=== PATIENT | female | born 1985 | race Caucasian/White ===

== ENCOUNTER 2016-09-04 08:42 | Emergency (ER) | payer MEDICAID ==
[~2016-09-04] VITALS: Ht 165.1 cm; Wt 88.9 kg
[2016-09-04 09:32] LABS: microscopic required? NO
[2016-09-04 09:39] LABS: BASOPHIL % 0.7 % (0-2); PLATELET COUNT 213 x10^3mcL (130-400); RED CELL DISTRIBUTION WIDTH 13.6 % (11.5-14.5)
[2016-09-04 09:42] LABS: UA SPECIFIC GRAVITY 1.015 (1.005-1.035); urine erythrocyte NEGATIVE (NEGATIVE)
[2016-09-04 09:59] LABS: CALCIUM 9.4 mg/dL (8.5-10.1); CARBON DIOXIDE 29.3 mmol/L (21-32); CHLORIDE SERUM 106 mmol/L (98-107); CREATININE SERUM 0.8 mg/dL (0.6-1.0); GFR1 > 60 mL/min; GLUCOSE SERUM 104 mg/dL (74-106); POTASSIUM SERUM 4.4 mmol/L (3.5-5.1); SODIUM SERUM 141 mmol/L (136-145)
[2016-09-04 10:03] LABS: ALKALINE PHOSPHATASE 105 U/L (46-116); ALT/SGPT 34 U/L (14-59); AMYLASE 61 U/L (25-115); AST/SGOT 27 U/L (15-37); BILIRUBIN TOTAL 0.3 mg/dL (0.20-1.00); LIPASE 131 IU/L (73-393); TOTAL PROTEIN, SERUM 6.6 g/dL (6.4-8.2)
[2016-09-04 10:09] LABS: ALBUMIN 3.3 g/dL (3.4-5.0)
[2016-09-04 11:50] VITALS: BP 105/70
[2016-09-05] MEDS ORDERED: NAPROSYN500 MG PO (11:29)
[2016-09-05] MEDS ORDERED: NAPROXEN250 MG PO (11:29)
== END 2016-09-04 11:50 | disposition home or self-care (01) ==
LOC: ED 08:42
PROVIDERS: Emergency Medicine
DX: R10.31 Right lower quadrant pain (principal); R11.0 Nausea
CPT/HCPCS: J1885; J2405; Q9967

== ENCOUNTER 2016-09-05 08:30 | Inpatient (IN) | payer MEDICAID ==
[~2016-09-05] VITALS: Ht 162.6 cm; Wt 91.7 kg
--- NOTE | 2016-09-05 08:46 | NUR ---
PT IN RESTROOM PROVIDING URINE SAMPLE.
--- NOTE | 2016-09-05 08:54 | NUR ---
PT CAME INTO ED WITH C/C RLQ/RUQ PAIN. PT CAME INTO ED YESTERDAY WITH POSSIBLE APPENDICITIS. PT D/C STABLE. PT CAME BACK DUE TO INCREASING PAIN AND VOMITTING THIS MORNING. PT ABD IS SOFT, ROUND, SYMMETRICAL AND TENDER TO PALPATION. PT HAS ACTIVE BOWEL SOUNDS X 4 QUADRANTS. PT LAYING IN BED IN POSITION OF COMFORT. WILL CONTINUE TO MONITOR PT AT THIS TIME.
--- NOTE | 2016-09-05 09:05 | NUR ---
AT BEDSIDE FOR MSE.
--- NOTE | 2016-09-05 09:15 | NUR ---
LAB AT BEDSIDE.
--- NOTE | 2016-09-05 09:20 | NUR ---
IM TORADOL GIVEN AT THIS TIME IN R [place]. WILL CONTINUE TO MONITOR PT AT THIS TIME.
[2016-09-05 09:22] LABS: BASOPHIL % 0.7 % (0-2); PLATELET COUNT 200 x10^3mcL (130-400); RED CELL DISTRIBUTION WIDTH 13.1 % (11.5-14.5)
--- NOTE | 2016-09-05 09:22 | NUR ---
PT TAKEN TO RADIOLOGY AT THIS TIME.
--- NOTE | 2016-09-05 09:32 | NUR ---
PT BACK FROM RADIOLOGY AT THIS TIME.
--- NOTE | 2016-09-05 09:37 | NUR ---
PT TAKEN TO ULTRASOUND AT THIS TIME.
[2016-09-05 09:47] LABS: CALCIUM 9.5 mg/dL (8.5-10.1); CARBON DIOXIDE 25.1 mmol/L (21-32); CHLORIDE SERUM 111 mmol/L (98-107); CREATININE SERUM 0.9 mg/dL (0.6-1.0); GFR1 > 60 mL/min; GLUCOSE SERUM 92 mg/dL (74-106); POTASSIUM SERUM 4.6 mmol/L (3.5-5.1); SODIUM SERUM 143 mmol/L (136-145)
[2016-09-05 09:51] LABS: ALKALINE PHOSPHATASE 100 U/L (46-116); ALT/SGPT 32 U/L (14-59); AMYLASE 67 U/L (25-115); AST/SGOT 23 U/L (15-37); BILIRUBIN TOTAL 0.28 mg/dL (0.20-1.00); LIPASE 149 IU/L (73-393); TOTAL PROTEIN, SERUM 6.6 g/dL (6.4-8.2)
[2016-09-05 09:57] LABS: ALBUMIN 3.3 g/dL (3.4-5.0)
--- NOTE | 2016-09-05 10:02 | NUR ---
PT BACK FROM ULTRASOUND. WILL CONTINUE TO MONITOR PT AT THIS TIME.
[2016-09-05] MEDS ORDERED: NAPROXEN250 MG PO (11:29)
[2016-09-05] MEDS ORDERED: NAPROSYN500 MG PO (11:29)
--- NOTE | 2016-09-05 11:30 | NUR ---
LFA IV INSERTED AT THIS TIME. 22G, SALINE LOCKED. MRSA DONE AND MED REC COMPLETED AT THIS TIME.
--- NOTE | 2016-09-05 11:51 | NUR ---
REPORT GIVEN TO MSR LIZZY RIVERA, ALL QUESTIONS AND CONCERNS ADDRESSED AT THIS TIME. WILL ENDORSE ALL CARE UPON ARRIVAL TO 258B.
--- NOTE | 2016-09-05 11:53 | NUR ---
CRISTELA BALL AND EMT TO TAKE PT TO [facility] ROOM 258B.
[2016-09-05 12:10] VITALS: BP 113/77
--- NOTE | 2016-09-05 12:30 | NUR ---
RECIEVED PT FROM ED. PT IS AWAKE, ALERT, AND ORIETNED. HAS NO COMPLAINT OF SOB, OR DIZZINESS. PT IS COMPLAINING OF PAIN. PRN PAIN MED TO BE GIVEN COVERAGE. CLEAR HEBER LUNG FIELD, SYMMETRICAL CHEST EXPANSION AND UNLABORED. ACTIVE BOWEL SOUNDS NOTED. NON DISTENDED ABDOMEN. PT IS COMPLAINING OF ABD PAIN. SKIN INTACT. SIDE RAILS UP, CALL LIGHT WITHIN REACH, WILL CONTINUE TO MONITOR
[2016-09-05 12:36] LABS: FREE T4 1.08 ng/dL (0.76-1.46); T4(THYROXINE) 9.6 ug/dL (4.7-13.3)
[2016-09-05 12:39] LABS: T3 TOTAL 1.33 ng/mL
--- NOTE | 2016-09-05 14:30 | NUR ---
PT ON BED, AWAKE, ALERT, AND ORIENTED. AT BEDSIDE. WILL CONTINUE TO MONITOR
--- NOTE | 2016-09-05 15:50 | NUR ---
PT ON BED, ASLEEP
[2016-09-05 17:17] VITALS: BP 129/66
--- NOTE | 2016-09-05 17:42 | NUR ---
PT AT BEDSIDE. EATING DINNER. NO N/V NOTED. WILL CONTINUE TO MONITOR
--- NOTE | 2016-09-05 20:32 | NUR ---
AAO X4 VERBALIZED NEEDS, FELT NAUSEOUS NO VOMITING, C/O ABDL PAIN 7/10 PER ASSESSMENT BUT REFUSED MEDICATION OFFERED, ON FULL LIQ DIET, IVF NS INFUSING @ 80CC/HR IV ACCESS LFA PATENT NON INFIL, SB IN THE MONITOR TELE #24 NO CP OR PRESSURE, APPLIED SCD'S FOR DVT PROPHYLAXIS, SHIFT ASSESSMENT DONE, CONT TO MONITOR.
[2016-09-05 20:57] VITALS: BP 115/59
[2016-09-05 22:22] LABS: AMPHETAMINE QUAL UR NONE DETECTED (NEG <=1000)
--- NOTE | 2016-09-06 05:28 | NUR ---
RECEIVED A CALL FROM DR FOOTE, HE WILL SEE THE PT TODAY, CONT TO MONITOR.
[2016-09-06 05:48] VITALS: BP 107/54
[2016-09-06 05:49] LABS: BASOPHIL % 0.4 % (0-2); PLATELET COUNT 189 x10^3mcL (130-400); RED CELL DISTRIBUTION WIDTH 13.3 % (11.5-14.5)
[2016-09-06 06:03] LABS: CALCIUM 9.3 mg/dL (8.5-10.1); CARBON DIOXIDE 27.7 mmol/L (21-32); CHLORIDE SERUM 106 mmol/L (98-107); CREATININE SERUM 1.1 mg/dL (0.6-1.0); GFR1 > 60 mL/min; GLUCOSE SERUM 97 mg/dL (74-106); MAGNESIUM 1.9 mg/dL (1.8-2.4); PHOSPHOROUS 3.4 mg/dL (2.5-4.9); POTASSIUM SERUM 4.5 mmol/L (3.5-5.1); SODIUM SERUM 140 mmol/L (136-145)
--- NOTE | 2016-09-06 08:28 | NUR ---
PT ON BED, AWAKE, ALERT, AND ORIENTED. HAS NO COMPLAINT OF PAIN, SOB, OR DIZZINESS. RESPONDS WELL TO QUESTION AND ANSWER. CLEAR HEBER LUNG FIELD, SYMMETRICAL CHEST EXPANSION AND UNLABORD. ACTIVE BOWEL SOUNDS NOTED. NON DISTENDED ABDOMEN. SIDE RAILS UP, CALL LIGHT WITHIN REACH, WILL CONTINUE TO MONITOR
[2016-09-06 08:54] VITALS: BP 121/64
--- NOTE | 2016-09-06 12:03 | NUR ---
PT ON BED, AWAKE, ALERT, AND ORIENTED. HAS NO COMPLAINT OF PAIN, SOB, OR DIZZINESS. WILL CONTINUE TO MONITOR
[2016-09-06 12:41] VITALS: BP 132/105
[2016-09-06 17:08] VITALS: BP 108/62
--- NOTE | 2016-09-06 18:01 | NUR ---
PT ON BED, AWAKE, ALERT, AND ORIENTED. HAS NO COMPLAINT OF PAIN, SOB, OR DIZZINESS. RESPONDS WELL TO QUESTION AND ANSWER. CLEAR HEBER LUNG FIELD, SYMMETRICAL CHEST EXPANSION AND UNLABORED. ACTIVE BOWEL SOUNDS NOTED. WILL CONTINUE TO MONITOR
--- NOTE | 2016-09-06 19:42 | NUR ---
RECEIVED REPORT FROM LIZZY RIVERA. PT RESTING IN BED COMFORTABLY IN NO ACUTE DISTRESS OR DISCOMFORT. AAOX4. DENIES OF STEELE/DIZZINESS. ON TELE MON 24 SB. DENIES OF ANY CHEST DISCOMFORT. PER PULSES STRONG. NEG ON EDEMA. IN RA WITH SAT OF 98%. BREATHING EVENLY AND UNLABORED. LUNGS CTA. BS ACTIVE. VOIDS FREELY WITHOUT ANY PAIN. AMBULATES STEADILY. DENIES OF ANY PAIN AT THIS TIME. IV ON LFA PATENT. SAFETY MEASURES ENSURED. INSTRUCTED PT TO CALL FOR ANY NEEDS/ASSISTANCE. CALL LIGHT WITHIN REACH. WILL CONT TO MONITOR PT.
[2016-09-06 22:20] VITALS: BP 114/54
--- NOTE | 2016-09-07 05:10 | NUR ---
PT SLEPT COMFORTABLY THROUGH OUT THE NIGHT. WAS IN NO ACUTE DISTRESS OR DISCOMFORT. SAFETY MEASURES WERE ENSURED. CALL LIGHT WITHIN REACH.
[2016-09-07 06:19] LABS: CALCIUM 9.6 mg/dL (8.5-10.1); CARBON DIOXIDE 27.8 mmol/L (21-32); CHLORIDE SERUM 107 mmol/L (98-107); CREATININE SERUM 0.9 mg/dL (0.6-1.0); GFR1 > 60 mL/min; GLUCOSE SERUM 97 mg/dL (74-106); POTASSIUM SERUM 4.3 mmol/L (3.5-5.1); SODIUM SERUM 140 mmol/L (136-145)
[2016-09-07 06:20] LABS: BASOPHIL % 0.5 % (0-2); PLATELET COUNT 180 x10^3mcL (130-400); RED CELL DISTRIBUTION WIDTH 13.7 % (11.5-14.5)
[2016-09-07 06:26] VITALS: BP 111/55
--- NOTE | 2016-09-07 07:40 | NUR ---
RECEIVED PT LAYING IN BED AWAKE AND ALERT. PT DENIES PAIN AT THIS TIME. PLEASANT AND COOPERATIVE WHEN ENGAGED.RESPIRATIONS APPEAR EVEN AND UNLABORED.IV TO THE LFA APPEARS PATENT AND INFUSING WELL AT 50ML/HR. TELE MONITOR SHOWS A HR OF 50. CALL LIGHT WITHIN REACH. BED IN LOWEST POSITION. ENCOURAGED TO CALL FOR ASSISTANCE WHEN NEEDED. WILL CONTINUE TO MONITOR
[2016-09-07] MEDS ORDERED: MOT400 PO (09:40)
[2016-09-07 09:45] VITALS: BP 132/63
--- NOTE | 2016-09-07 10:06 | NUR ---
AM ROUNDS DONE, PER DR. BREAUX, PLAN OF CARE IF FOR PT TO DC HOME ABND CONTINUE WITH MOTRIN AND TREATMENT MED OF CHOICE. PT AGREES TO PLAN OF CARE. CALL LIGHT WITHIN REACH. WILL CONTINUE TO MONITOR
[2016-09-07 10:15] VITALS: BP 132/63
[2016-09-07] MEDS ORDERED: GAS RELIEF 8080 MG PO (11:24)
[2016-09-07] MEDS ORDERED: ZOFRAN8 MG PO (11:24)
--- NOTE | 2016-09-07 12:00 | NUR ---
WENT OVER DISCHARGE PAPERWORK AND PT TEACHING WITH PT. APPEARS RECEPTIVE. REMOVED IV ACCESS. PT TOLERATED WELL. AT BEDSIDE. ID [id number] REMOVED AND DISCARDED IN SHREDDER. TELEBOX 24 RETURNED TO MONITOR STATION. PT DENIES PAIN AT THIS TIME. NO APPARENT SIGNS OF ACUTE DISTRESS NOTED. WILL BE ESCORTED TO DISCHARGE OFFICE BY UNIT STAFF.
--- NOTE | 2016-09-07 12:09 | NUR ---
PT HAS LEFT UNIT. ESCORTED BY UNIT STAFF TO DISCHARGE OFFICE. NO APPARENT SIGNS OF ACUTE DISTRESS NOTED
== END 2016-09-07 12:05 | disposition home or self-care (01) | DRG 532 ==
LOC: ED 08:30 → DU 11:26
PROVIDERS: Emergency Medicine; ADMIT Family Medicine
DX: N83.11 Corpus luteum cyst of right ovary (principal); N17.0 Acute kidney failure with tubular necrosis; N26.1 Atrophy of kidney (terminal); R00.1 Bradycardia, unspecified; E66.9 Obesity, unspecified; Z68.34 Body mass index [BMI] 34.0-34.9, adult
CPT/HCPCS: 83880; 84439; J1170; J1885; J2270; J2543; J7030; Q0162; Q9967

== ENCOUNTER 2017-02-04 21:51 | Emergency (ER) | payer MEDICAID ==
[~2017-02-04 21:51] MED LIST: GAS RELIEF 8080 MG PO; MOT400 PO; NAPROSYN500 MG PO; NAPROXEN250 MG PO; ZOFRAN8 MG PO
[2017-02-04 21:57] VITALS: BP 124/86
== END 2017-02-04 23:37 | disposition left against medical advice (07) ==
LOC: ED 21:51
DX: Z53.21 Procedure and treatment not carried out due to patient leaving prior to being seen by health care provider (principal)